=== PATIENT | male | born 1965 | race Caucasian/White ===

== ENCOUNTER 2016-11-08 11:43 | Emergency (ER) | payer MEDICARE ==
[2016-11-08 12:27] LABS: BASOPHILS 0.2 % (0.0-2.0); EOSINOPHILS 1.2 % (0-7); HEMATOCRIT 43.2 % (42.0-54.0); HEMOGLOBIN 15.2 g/dL (13.5-17.5); IMMATURE GRANULOCYTES 0.2 % (0-5); LYMPHOCYTES 29.6 % (15-50); MCH 31.6 pg (26.0-34.0); MCHC 35.2 g/dL (31.0-37.0); MCV 89.8 fL (80.0-100.0); MONOCYTES 6.9 % (2-11); NEUTROPHILS 61.9 % (40-80); PLATELET COUNT 279 10x3/uL (130-400); RBC 4.81 10x6/uL (4.20-6.10); RDW 13.3 % (11.5-14.5); WBC 8.5 10x3/uL (4.8-10.8)
[2016-11-08 12:42] LABS: ALKALINE PHOSPHATASE 86 U/L (46-116); ALT (SGPT) 57 U/L (10-68); BILIRUBIN - TOTAL 0.58 mg/dL (0.2-1.3); CALC OSMOLALITY 278 mosm/kg (275-300); CALCIUM 9.5 mg/dL (8.5-10.1); CARBON DIOXIDE 31.4 mmol/L (21.0-32.0); CHLORIDE - SERUM 102 mmol/L (98-107); CREATININE - SERUM 0.9 mg/dL (0.6-1.3); GLUCOSE 100 mg/dL (74-106); POTASSIUM - SERUM 4.3 mmol/L (3.5-5.1); PROTEIN - SERUM 8.7 g/dL (6.4-8.2); SODIUM 140 mmol/L (136-145); UREA NITROGEN 12 mg/dL (7-18); eGFR NON AFRICAN AMERICAN > 90 mL/min (90-120)
== END 2016-11-08 15:04 | disposition home or self-care (01) ==
LOC: D.ER 11:43
PROVIDERS: Emergency Medicine
DX: I10 Essential (primary) hypertension (principal)

== ENCOUNTER 2017-05-09 08:12 | Emergency (ER) | payer MEDICARE ==
[2017-05-09 08:55] LABS: BASOPHILS 0.5 % (0-2); HEMATOCRIT 41.1 % (42.0-54.0); HEMOGLOBIN 14.3 g/dL (13.5-17.5); IMMATURE GRANULOCYTES 0.2 % (0-5); LYMPHOCYTES 41.3 % (15-50); MCH 32.2 pg (26.0-34.0); MCHC 34.8 g/dL (31.0-37.0); MCV 92.6 fL (80.0-100.0); MEAN PLATELET VOLUME 10.5 fL (7.4-10.4); MONOCYTES 10.9 % (2-11); NEUTROPHILS 45.1 % (40-80); PLATELET COUNT 253 10x3/uL (130-400); RBC 4.44 10x6/uL (4.20-6.10); RDW 12.8 % (11.5-14.5); WBC 6.6 10x3/uL (4.8-10.8)
[2017-05-09 09:08] LABS: ALBUMIN 3.8 g/dL (3.4-5.0); ALKALINE PHOSPHATASE 55 U/L (46-116); ALT (SGPT) 72 U/L (10-68); BILIRUBIN - TOTAL 0.77 mg/dL (0.2-1.3); CALC OSMOLALITY 268 mosm/kg (275-300); CALCIUM 8.6 mg/dL (8.5-10.1); CARBON DIOXIDE 29.2 mmol/L (21.0-32.0); CHLORIDE - SERUM 98 mmol/L (98-107); GLUCOSE 99 mg/dL (74-106); LIPASE 389 U/L (73-393); POTASSIUM - SERUM 4.5 mmol/L (3.5-5.1); PROTEIN - SERUM 7.7 g/dL (6.4-8.2); SODIUM 134 mmol/L (136-145); UREA NITROGEN 15 mg/dL (7-18); eGFR NON AFRICAN AMERICAN 84 mL/min (90-120)
[2017-05-09 10:55] LABS: APPEARANCE CLEAR (CLEAR); BILIRUBIN NEGATIVE (NEGATIVE); COLOR YELLOW (YELLOW); GLUCOSE NEGATIVE (NEGATIVE); KETONE NEGATIVE (NEGATIVE); LEUKOCYTE ESTERASE NEGATIVE (NEGATIVE); NITRITE NEGATIVE (NEGATIVE); PROTEIN NEGATIVE (NEGATIVE); SPECIFIC GRAVITY 1.005 (1.005-1.020); UROBILINOGEN NORMAL (NORMAL)
== END 2017-05-09 12:30 | disposition home or self-care (01) ==
LOC: D.ER 08:12
PROVIDERS: Emergency Medicine
DX: K29.00 Acute gastritis without bleeding (principal); I10 Essential (primary) hypertension; R19.7 Diarrhea, unspecified; R11.2 Nausea with vomiting, unspecified

== ENCOUNTER → 2018-08-30 09:59 | Outpatient (CLI) | payer MEDICAID | END | disposition home or self-care (01) | LOC: D.MRI 09:59 | DX: M54.16 Radiculopathy, lumbar region (principal) ==

== ENCOUNTER 2020-05-07 11:38 | Day surgery (SDC) | payer MEDICAID ==
[~2020-05-07] VITALS: Ht 167.6 cm; Wt 58.5 kg
[~2020-05-07 11:38] MED LIST: CYCLOBENZAPRINE5 MG PO; FLOMAX0.4 MG PO; HYDROCODON-ACE1 EA10 PO; LISINOPRIL20 MG PO; PROZAC20 MG PO
[2020-05-07 12:06] LABS: HEMATOCRIT 41.5 % (42.0-54.0); HEMOGLOBIN 14.1 g/dL (13.5-17.5); MCH 30.3 pg (26.0-34.0); MCV 89.1 fL (80.0-100.0); MEAN PLATELET VOLUME 9.3 fL (7.4-10.4); RBC 4.66 10x6/uL (4.20-6.10); WBC 6.7 10x3/uL (4.8-10.8)
[2020-05-07 13:37] VITALS: BP 117/61; Ht 167.6 cm; Wt 58.5 kg
--- NOTE | 2020-05-07 17:45 | NUR ---
1630 MEDICATED FOR PAIN,SANDY AND SPLINT TO LEFT FORARM. FINGERS VINNY WELL. ELEVATED ON PILLOW 1638 INSTRUCTIONS GIVEN 1755 IV REMOVED PT VOIDED. 1730 D/C HOME
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
== END 2020-05-07 17:30 | disposition home or self-care (01) ==
LOC: D.OPS 11:38 → D.PAN 13:45 → D.OPS 16:00 → D.PAN 16:00 → D.OPS 17:30
PROVIDERS: Anesthesiology; ATTEND Orthopaedic Surgery
DX: S62.325A Displaced fracture of shaft of fourth metacarpal bone, left hand, initial encounter for closed fracture (principal); X58.XXXA Exposure to other specified factors, initial encounter; M79.642 Pain in left hand

== ENCOUNTER → 2020-05-31 13:56 | Outpatient (CLI) | payer MEDICAID ==
[2020-05-07 13:37] VITALS: BMI 20.8
--- NOTE | 2020-05-31 15:24 | NUR ---
PATIENT CONSENTED FOR A RIGHT SHOULDER ARTHROGRAM WITH MRI. TIME OUT PERFORMED AT 1500 BY PHAN TAYLOR RTMikala AND DR. VILLAFANA.
== END | disposition home or self-care (01) ==
LOC: D.RAD 13:56 → D.MRI 15:00
PROVIDERS: ATTEND Nurse Practitioner Family
DX: M25.511 Pain in right shoulder (principal)

== ENCOUNTER 2020-07-02 07:45 | Day surgery (SDC) | payer OTHER ==
[2020-06-30 13:14] LABS: HEMATOCRIT 44.3 % (42.0-54.0); HEMOGLOBIN 14.9 g/dL (13.5-17.5); MCH 30.2 pg (26.0-34.0); MCHC 33.6 g/dL (31.0-37.0); MCV 89.9 fL (80.0-100.0); MEAN PLATELET VOLUME 9.5 fL (7.4-10.4); RBC 4.93 10x6/uL (4.20-6.10); RDW 13.1 % (11.5-14.5); WBC 9.6 10x3/uL (4.8-10.8)
[2020-06-30 13:27] LABS: ALKALINE PHOSPHATASE 101 U/L (30-120); ALT (SGPT) 21 U/L (10-68); BILIRUBIN - TOTAL 0.48 mg/dL (0.2-1.3); CALC OSMOLALITY 277 mosm/kg (275-300); CALCIUM 8.9 mg/dL (8.5-10.1); CARBON DIOXIDE 30.3 mmol/L (21.0-32.0); CHLORIDE - SERUM 105 mmol/L (98-107); GLUCOSE 76 mg/dL (74-106); POTASSIUM - SERUM 3.9 mmol/L (3.5-5.1); PROTEIN - SERUM 7.9 g/dL (6.4-8.2); SODIUM 139 mmol/L (136-145); UREA NITROGEN 16 mg/dL (7-18); eGFR NON AFRICAN AMERICAN 83 mL/min (90-120)
[2020-06-30 13:31] LABS: APTT 30.5 SECONDS (22.8-39.4); INR 0.88 (0.85-1.17); PROTIME 11.9 SECONDS (11.6-15.0)
[~2020-07-02] VITALS: Ht 167.6 cm; Wt 62.6 kg
[~2020-07-02 07:45] MED LIST changes: +ELAVIL10 MG PO; +LYRICA75 MG PO
[2020-07-02 10:08] VITALS: BP 118/72; Ht 167.6 cm; Wt 62.6 kg
--- NOTE | 2020-07-02 15:51 | NUR ---
1430 IV D/C'D WITH CANNULA INTACT, PRESSURE HELD AND DRSG PLACED. DISCHARGE INSTRUCTIONS GIVEN AND PT VERBALIZED AN UNDERSTANDING. DISCHARGED HOME IN STABLE CONDITION AND WITHOUT C/O
--- NOTE | 2020-07-03 09:21 | OP ---
PATIENT NAME: RAMANA LARIOS MEDICAL RECORD: [id number] :65 LOCATION:[facility] ADMISSION DATE: SURGEON: JOSÉ MIGUEL CHENG DO DATE OF OPERATION: 07/02/2020 PROCEDURE PERFORMED: Right shoulder arthroscopy with subacromial decompression, distal clavicle excision, labral debridement, biceps tenodesis, and rotator cuff repair. PREOPERATIVE DIAGNOSIS: Right shoulder rotator cuff tear, SLAP tear, subacromial impingement, AC joint arthritis. POSTOPERATIVE DIAGNOSIS: Right shoulder rotator cuff tear, SLAP tear, subacromial impingement, AC joint arthritis. INDICATIONS: Mr. Ramana Larios is a 54-year-old male who has had right shoulder pain for quite some time. He is tired of dealing with the pain and this affects his activities of daily living. He got an MRI showing the above findings. He wanted something done surgically. I informed him of the risks of it including infection, bleeding, damage to nerves or vessels, frozen shoulder, continued pain, loss of strength, and retear and he was okay with all that and signed the consent. SURGEON: José Miguel Cheng DO DESCRIPTION OF PROCEDURE: The patient was taken to the operative suite after given a block by anesthesia in the preoperative area, laid in the left lateral decubitus position, sedated, and an LMA was placed. He was given 900 mg of clindamycin preoperatively. The right shoulder was then prepped and draped in a sterile fashion. A time-out was performed. Everyone was in agreement as to the correct side, site, patient, and procedure. I then began by inflating the shoulder joint with 60 mL of normal saline through a posterior portal with 18-gauge spinal needle. I then established portal with an 11 blade scalpel. Trocar was entered into the joint. Anterior portal was then established using 18-gauge spinal needle and 11 blade scalpel. I then saw the SLAP tear as well as the massive supraspinatus tear into some of the infraspinatus fibers. The cartilage was in good repair and there was nothing in the inferior joint. I then brought in a bur through the anterior portal and did a biceps tenotomy and labral debridement. I went to the subacromial space, established a lateral portal with an 18-gauge spinal needle and 11 blade scalpel, and used a shaver to clean up the area and then saw the spur of the distal lateral acromion and took that down. I did acromioplasty as well as subacromial decompression and then also through the anterior portal opened up the AC joint as it was touching to approximately 7 mm, removing the distal clavicle. I then decorticated the greater tuberosity and then opened up the lateral portal with a 15 blade scalpel. I made careful dissection down with -Hanna's bluntly down to the rotator cuff tear, removed the bursa, and then put in medial row anchors through the rotator cuff tendon tear and brought them over 2 lateral row anchors, holding down the repair nicely. I then used the Regeneten implant and stapled it medially and laterally, covering up the repair. The anterior humerus was then addressed as I made an incision over the anterior humerus and retrieved out the long head of the biceps tendon, put a unicortical 2.9 JuggerLoc biceps fixation anchor in, looped it through the loop, and cinched it down. I then cut the excess tendon loop and sutured through the biceps and tied that down. I then removed the excess tendon and suture. I then irrigated the open sites and OPERATIVE REPORT [id number] RAMANA LARIOS then they were closed by Benji Patel, certified surgical instrument maker, with 2-0 Vicryl in interrupted fashion, 4-0 Monocryl around the skin and then the anterior and posterior portal sites were closed with 4-0 Monocryl in interrupted fashion. Dermabond glue was placed on all of them and then dressed with Telfa and Tegaderm. He was then placed in a sling that he had brought and awakened and taken to recovery in stable condition. BLOOD LOSS: Minimal. COMPLICATIONS: None. NTS:[id number] Voice Confirmation ID: [id number] DOCUMENT ID: [id number] JOSÉ MIGUEL CHENG DO at 0921 CC: [id number] DICTATION DATE: 07/02/20 1157 SAND OPERATOR: 07/02/202137 [facility] 07/02/20 [facility] [address] [place] [address]
== END 2020-07-02 15:00 | disposition home or self-care (01) ==
LOC: D.OPS 07:45
PROVIDERS: Anesthesiology; ATTEND Orthopaedic Surgery
DX: M75.121 Complete rotator cuff tear or rupture of right shoulder, not specified as traumatic (principal); S43.431A Superior glenoid labrum lesion of right shoulder, initial encounter; X58.XXXA Exposure to other specified factors, initial encounter; M25.511 Pain in right shoulder; I10 Essential (primary) hypertension; S62.325D Displaced fracture of shaft of fourth metacarpal bone, left hand, subsequent encounter for fracture with routine healing; X58.XXXD Exposure to other specified factors, subsequent encounter